=== PATIENT | male | born 1980 | race Hispanic/Latino ===

== ENCOUNTER 2018-07-24 01:39 | Inpatient (IN) | payer OTHER ==
[2018-07-24] VITALS (29 sets, daily range): BP systolic 117–183; BP diastolic 70–115
[~2018-07-24] VITALS: Ht 165.1 cm; Wt 85.7 kg
[2018-07-24 02:11] LABS: BASOPHILS % (AUTO) 0.5 % (0.0-5.0); HEMATOCRIT 44.8 % (42-54); LYMPHOCYTES % (AUTO) 12.2 % (21.0-51.0); MEAN CORPUSCULAR HEMOGLOBIN 32.2 pg (27.0-33.0); MEAN CORPUSCULAR HGB CONC 34.3 g/dL (32.0-36.0); MEAN CORPUSCULAR VOLUME 93.9 fL (79-99); MONOCYTES % (AUTO) 5.8 % (3.0-13.0); NEUTROPHILS % (AUTO) 81.5 % (40.0-77.0); PLATELET COUNT (AUTO) 279 K/uL (130-400); RED BLOOD CELL COUNT(AUTO) 4.76 MIL/uL (4.50-6.20); RED CELL DISTRIBUTION WIDTH 12.7 % (11.0-15.5); WHITE BLOOD COUNT (AUTO) 22.4 K/uL (4.8-10.8)
[2018-07-24] MEDS ORDERED: CEFAZOLIN SODIUM 1 GM VIAL ONE (02:18)
[2018-07-24] MEDS ORDERED: ONDANSETRON HCL 4 MG/2 ML VIAL ONE ×3 (02:18→16:22)
[2018-07-24] MEDS ORDERED: MORPHINE SULFATE 4 MG/1ML SYG ONE (02:19)
[2018-07-24 02:21] LABS: CREATININE 1.4 mg/dL (0.5-1.5); POTASSIUM 4.2 mmol/L (3.5-5.1)
[2018-07-24 02:24] LABS: INR 1.02 (0.85-1.15); PARTIAL THROMBOPLASTIN TIME 24.2 SEC (26.3-35.5); PROTHROMBIN TIME 10.7 SEC (9.6-11.6)
[2018-07-24 02:35] LABS: ALBUMIN 4.6 g/dL (3.5-5.0); BILIRUBIN,TOTAL 0.7 mg/dL (0.2-1.0); TOTAL PROTEIN, SERUM 7.8 g/dL (6.0-8.3)
[2018-07-24] MEDS: SODIUM CHLORIDE 0.9% 1000ML 1,000 ML IV SCH ×3 (03:06→18:30)
[2018-07-24] MEDS ORDERED: MORPHINE SULFATE 4 MG/1ML SYG IV PRN ×2 (03:15→22:45)
[2018-07-24] MEDS ORDERED: ONDANSETRON HCL 4 MG/2 ML VIAL IV PRN (03:15)
[2018-07-24] MEDS ORDERED: CEFAZOLIN SODIUM 1 GM VIAL IVP SCH (03:15)
[2018-07-24] MEDS ORDERED: KETOROLAC TROMETHAMINE 15MG/ML IV PRN (03:15)
[2018-07-24] MEDS ORDERED: KETOROLAC TROMETHAMINE 30MG/ML ONE (03:39)
[2018-07-24] MEDS ORDERED: MORPHINE SULFATE 2 MG/ML 1ML SYG ONE (03:39)
[2018-07-24] MEDS ORDERED: ENOXAPARIN SODIUM 40 MG/0.4 ML SYRINGE SQ SCH (09:00)
[2018-07-24] MEDS ORDERED: FAMOTIDINE/PF 20 MG/2 ML VIAL IV SCH (09:00)
[2018-07-24] MEDS ORDERED: DIVA500T52 PO (13:12)
[2018-07-24] MEDS ORDERED: HYDR-3422 PO (13:12)
[2018-07-24] MEDS ORDERED: TRAZ-187 PO (13:12)
[2018-07-24] MEDS ORDERED: FENTANYL CITRATE PF 50 MCG/1 ML 2ML VIAL ONE ×2 (16:22→16:40)
[2018-07-24] MEDS ORDERED: LIDOCAINE PF 2% 5ML ABBOJECT ONE (16:22)
[2018-07-24] MEDS ORDERED: DEXAMETHASONE SOD PHOSPHATE 10MG/ML 1ML VIAL ONE (16:22)
[2018-07-24] MEDS ORDERED: PROPOFOL 10 MG/ML 20ML VIAL IV ONE ×2 (16:22→17:19)
[2018-07-24] MEDS ORDERED: MIDAZOLAM HCL 1 MG/ML 2ML VIAL ONE (16:22)
[2018-07-24] MEDS ORDERED: LIDOCAINE HCL-MPF 1% 2ML VIAL IVP PRN (16:30)
[2018-07-24] MEDS ORDERED: HYDROCODONE/ACETAMINOPHEN 5/325 MG TAB PO PRN (16:30)
[2018-07-24] MEDS ORDERED: DiphenhydrAMINE HCL 50 MG/ML VIAL IVP PRN (16:30)
[2018-07-24] MEDS ORDERED: POTASSIUM CHLORIDE 20 MEQ ERTAB PO PRN (16:30)
[2018-07-24] MEDS ORDERED: DIPHENHYDRAMINE HCL 25 MG CAPSULE PO PRN (16:30)
[2018-07-24] MEDS ORDERED: FERROUS FUMARATE 324 MG TABLET PO PRN (16:30)
[2018-07-24] MEDS ORDERED: POTASSIUM CHLORIDE 20MEQ/100ML 100 ML IV PRN (16:30)
[2018-07-24] MEDS ORDERED: CALCIUM CARBONATE 500 MG TABLET PO PRN (16:30)
[2018-07-24] MEDS ORDERED: POTASSIUM CHLORIDE 10% ELIXIR 20 MEQ/15 ML UDCUP PO PRN (16:30)
[2018-07-24] MEDS ORDERED: RACEPINEPHRINE HCL 2.25% 0.5 ML NEB SOLN ONE (17:30)
[2018-07-24] MEDS ORDERED: SODIUM CHLORIDE 3% FOR INHALATION 4 ML/AMP VIAL.NEB IH ONE (17:32)
[2018-07-24] MEDS ORDERED: MEPERIDINE-PF 25 MG/ML SYG ONE ×2 (17:47→17:58)
[2018-07-24] MEDS ORDERED: PHARMACY COMMUNICATION MISC PRN (18:00)
[2018-07-24] MEDS ORDERED: LORAZEPAM 2 MG/ML 1 ML VIAL IVP PRN (18:00)
[2018-07-24] MEDS ORDERED: HYDRALAZINE HCL 20 MG/ML VIAL ONE (18:05)
[2018-07-24] MEDS: ACETAMINOPHEN EXTRA STRENGTH 500 MG TABLET PO SCH (18:30)
--- NOTE | 2018-07-24 18:45 | NUR ---
TRANSFER FROM PACU PATIENT TRANSFERRED FROM PACU, WITH ELEVATED BLOOD PRESSURE AND PAIN OF 10 ON 0 TO 10 PAIN SCALE. PER PACU NURSE, HYDRALAZINE AND DEMEROL X2 GIVEN. DR. GARCIA CALLED FOR FURTHER ORDERS. POSITIVE PETAL PULSES, 2-3 SECOND CAPILLARY REFILL, FOOT AND LEG IS WARM TO TOUCH. PENDING TO GIVE REPORT TO SUBHASH VELAZQUEZ. WILL MONITOR PT CLOSELY.
[2018-07-24] MEDS ORDERED: KETOROLAC TROMETHAMINE 15MG/ML IM SCH (19:15)
--- NOTE | 2018-07-24 19:34 | NUR ---
Patient states that he is in pain and needs some type of wrap around his leg that he previously had to help keep his leg straight. I informed him that I was there to instruct him on an incentive spirometer exercise. Patient says he can't concentrate at this time with the pain. I went ahead and told Rambo VELAZQUEZ of the situation. Addendum: 07/24/18 at 1937 by YASMIN ARGUETA, RT RT Amended: Links added.
[2018-07-24] MEDS: FAMOTIDINE 20MG TAB 20 MG TAB PO SCH (19:45)
--- NOTE | 2018-07-24 19:45 | NUR ---
TRANSFER FROM PACU PATIENT TRANSFERRED FROM PACU. PER PACU NURSE, GAVE DEMEROL X2 AND HYDRALAZINE FROM ELEVATED BLOOD PRESSURE. PATIENT IS AAOX3, ELEVATED BLOOD PRESSURE CONTINUES. STATES PAIN IS AT A 10 ON 0 TO [address] PA[address] WILL CALL DR. GARCIA FOR FURTHER ORDERS. Addendum: 07/24/18 at 2013 by JOSEF BEAVER RN RN ERROR
[2018-07-24] MEDS: CEFAZOLIN 3GM /D5W 100ML 100 ML IV SCH (19:52)
[2018-07-24] MEDS: HYDROCODONE/ACETAMINOPHEN 5/325 MG TAB PO PRN (20:25)
[2018-07-24] MEDS: CHLORDIAZEPOXIDE HCL 25 MG CAP PO PRN (21:29)
[2018-07-25] MEDS: ACETAMINOPHEN EXTRA STRENGTH 500 MG TABLET PO SCH ×3 (00:13→16:06)
[2018-07-25] MEDS: SODIUM CHLORIDE 0.9% 1000ML 1,000 ML IV SCH ×2 (03:07→08:39)
[2018-07-25] MEDS: KETOROLAC TROMETHAMINE 30MG/ML IV SCH ×3 (03:07→13:35)
[2018-07-25 03:20] VITALS: BP 159/90
[2018-07-25] MEDS: CEFAZOLIN 3GM /D5W 100ML 100 ML IV SCH (05:06)
[2018-07-25 07:43] VITALS: BP 135/91
[2018-07-25] MEDS: POLYETHYLENE GLYCOL 3350 17 GM POWD.PACK PO SCH (08:33)
[2018-07-25] MEDS: FAMOTIDINE 20MG TAB 20 MG TAB PO SCH ×2 (08:34→21:59)
[2018-07-25] MEDS: ENOXAPARIN SODIUM 40 MG/0.4 ML SYRINGE SQ SCH (08:35)
[2018-07-25] MEDS: CHLORDIAZEPOXIDE HCL 25 MG CAP PO PRN (08:58)
--- NOTE | 2018-07-25 09:16 | NUR ---
cm note pt resides athome with significant other, pt independent and active at home.wiht adls and self care. no dme. referred to [employer] [facility] for possible medicaid. pt states no dc needs. pt currently using crutches for ambulation. dc plan is to home. Addendum: 07/26/18 at 0921 by BLUE HERRMANN Amended: Links added.
--- NOTE | 2018-07-25 11:07 | NUR ---
SS REFERRAL Sw spoke to nurse Cui regarding referral. Per nurse pt is very agitated at this time, was just medicated. Sw entered the room and pt was on the phone, appeared upset at person on the phone. Sw to revisit
[2018-07-25 11:27] VITALS: BP 148/86
[2018-07-25] MEDS ORDERED: PSYLLIUM SEED 1 EACH PACKET PO SCH (12:00)
[2018-07-25] MEDS: HYDROCODONE/ACETAMINOPHEN 5/325 MG TAB PO PRN ×2 (16:09→22:02)
[2018-07-25 16:15] VITALS: BP 135/82
[2018-07-25 20:00] VITALS: BP 159/80
--- NOTE | 2018-07-25 20:30 | NUR ---
SMOKING. PT REQUESTING TO GO OUT AND SMOKE. SANTY Palmer. MADE AWARE AND ALLOWED PATIENT TO GO SMOKE WITH SUPERVISION ON STAFF.
[2018-07-26 00:04] VITALS: BP 147/78
[2018-07-26] MEDS: ACETAMINOPHEN EXTRA STRENGTH 500 MG TABLET PO SCH ×2 (00:26→08:30)
[2018-07-26 04:00] VITALS: BP 135/85
[2018-07-26] MEDS: HYDROCODONE/ACETAMINOPHEN 5/325 MG TAB PO PRN ×2 (05:00→09:36)
[2018-07-26 06:04] LABS: HEMATOCRIT 36.4 % (42-54); MEAN CORPUSCULAR HEMOGLOBIN 31.5 pg (27.0-33.0); MEAN CORPUSCULAR HGB CONC 33.4 g/dL (32.0-36.0); MEAN CORPUSCULAR VOLUME 94.4 fL (79-99); NUCLEATED RED BLOOD CELLS 0.1 % (0.0-0.19); PLATELET COUNT (AUTO) 257 K/uL (130-400); RED BLOOD CELL COUNT(AUTO) 3.85 MIL/uL (4.50-6.20); RED CELL DISTRIBUTION WIDTH 12.1 % (11.0-15.5); WHITE BLOOD COUNT (AUTO) 13.4 K/uL (4.8-10.8)
[2018-07-26 06:21] LABS: CREATININE 1.1 mg/dL (0.5-1.5); MAGNESIUM 1.9 mg/dL (1.80-2.40); POTASSIUM 3.9 mmol/L (3.5-5.1)
[2018-07-26 07:05] VITALS: BP 148/84
[2018-07-26] MEDS: POLYETHYLENE GLYCOL 3350 17 GM POWD.PACK PO SCH (09:36)
[2018-07-26] MEDS: FAMOTIDINE 20MG TAB 20 MG TAB PO SCH (09:36)
[2018-07-26] MEDS: ENOXAPARIN SODIUM 40 MG/0.4 ML SYRINGE SQ SCH (09:38)
[2018-07-26 11:13] VITALS: BP 137/68
--- NOTE | 2018-07-26 13:20 | NUR ---
Discharge teaching completed in the room with pt and significant other at side. Emphasis on importance of following Dr. Luong's orders for keeping dressing to left knee incision clean, dry, and intact, as well as taking medication exactly as ordered, and following up with Dr. Luong in 2 weeks for staple removal. Discussed activity and weight bearing status as well. Pt sent home with walker and crutches. Written rx for t#3, tramadol, and surfak given to pt. Discussed purpose, route, frequency, and duration of treatment, as well as side effects and adverse effects. PIV removed, tip intact. Dressed with sterile 2x2 and band aid after hemostasis. Dressing changed one time per MD orders. [place] to left knee intact. No active drainage. Painted with Betadine, applied Xeroform, and dressed with 4x4 and geeta wrap. Pt wheeled to [place] by [facility] staff for transport home via private car, accompanied by . Pt in stable condition at time of discharge.
--- NOTE | 2018-07-26 14:54 | NUR ---
cm note met with patient and with family. pt requesting assistance for walker, spoke to CM Dir. Romi coon and received approval for assistance with walker, informed pt to return back to hospital when no longer using. pt and family vebalizes understanding. provided pt with rx assist card for meds. as well. encouraged to followup at the low income clinics in the area. for care. pt and family verbalize understanding.
[2018-07-26] MEDS ORDERED: BISACODYL 5 MG TABLET.DR PO PRN (16:30)
[2018-07-27] MEDS ORDERED: BISACODYL 10 MG SUPP.RECT RC PRN (16:30)
== END 2018-07-26 13:23 | disposition home or self-care (01) | DRG 482 ==
LOC: EDH 01:39 → EDHIP 01:40 → 4AH 07:39
PROVIDERS: ADMIT Internal Medicine; ATTEND Internal Medicine
PROC: 0QSC04Z Reposition Left Lower Femur with Internal Fixation Device, Open Approach (ICD-10-PCS; principal; 2018-07-26)
DX: S72.422B Displaced fracture of lateral condyle of left femur, initial encounter for open fracture type I or II (principal); F17.210 Nicotine dependence, cigarettes, uncomplicated; F31.9 Bipolar disorder, unspecified; I10 Essential (primary) hypertension; S81.012A Laceration without foreign body, left knee, initial encounter; D72.829 Elevated white blood cell count, unspecified; F41.9 Anxiety disorder, unspecified; E66.9 Obesity, unspecified; Z68.31 Body mass index [BMI] 31.0-31.9, adult; Y93.89 Activity, other specified; Y92.89 Other specified places as the place of occurrence of the external cause; Y99.8 Other external cause status
CPT/HCPCS: 36415; 73552; 73562; 80048; 80053; 82550; 82948; 83735; 84100; 84484; 85025; 85027; 85610; 85730; 93005; 94640; 97039; G0378; G0480; J0360; J0690; J1100; J1650; J1885; J2001; J2060; J2175; J2250; J2270; J2405; J2704; J3010; J3490; J7030; J7120

== ENCOUNTER 2019-10-10 17:23 | Emergency (ER) | payer OTHER ==
[~2019-10-10 17:23] MED LIST: DIVA500T52 PO; HYDR-3422 PO; TRAZ-187 PO
[2019-10-10] MEDS ORDERED: SODIUM CHLORIDE 0.9% 1000ML 1,000 ML IV ONE (17:24)
[2019-10-10] MEDS ORDERED: ASPIRIN 325 MG TABLET ONE (17:57)
[2019-10-10 18:01] LABS: BASOPHILS % (AUTO) 0.5 % (0.0-5.0); EOSINOPHILS % (AUTO) 0.1 % (0.0-8.0); HEMATOCRIT 46.4 % (42-54); LYMPHOCYTES % (AUTO) 10.1 % (21.0-51.0); MEAN CORPUSCULAR HEMOGLOBIN 30.6 pg (27.0-33.0); MEAN CORPUSCULAR HGB CONC 34.5 g/dL (32.0-36.0); MEAN CORPUSCULAR VOLUME 88.7 fL (79-99); MONOCYTES % (AUTO) 6.6 % (3.0-13.0); NEUTROPHILS % (AUTO) 81.6 % (40.0-77.0); PLATELET COUNT (AUTO) 331 K/uL (130-400); RED BLOOD CELL COUNT(AUTO) 5.23 MIL/uL (4.50-6.20); RED CELL DISTRIBUTION WIDTH 12.4 % (11.0-15.5); WHITE BLOOD COUNT (AUTO) 19.6 K/uL (4.8-10.8)
[2019-10-10] MEDS ORDERED: LORAZEPAM 2 MG/ML 1 ML VIAL ONE (18:18)
[2019-10-10 18:21] LABS: CREATININE 2.1 mg/dL (0.5-1.5); INR 1.02 (0.85-1.15); PARTIAL THROMBOPLASTIN TIME 24.9 SEC (26.3-35.5); POTASSIUM 4.2 mmol/L (3.5-5.1)
[2019-10-10 18:34] LABS: BILIRUBIN,TOTAL 1.1 mg/dL (0.2-1.0)
== END 2019-10-10 20:19 | disposition left against medical advice (07) ==
LOC: EDH 17:23
DX: R07.89 Other chest pain (principal); M62.82 Rhabdomyolysis; N17.9 Acute kidney failure, unspecified; I10 Essential (primary) hypertension; F41.9 Anxiety disorder, unspecified; F32.9 Major depressive disorder, single episode, unspecified; Z72.0 Tobacco use
CPT/HCPCS: 36415; 71045; 80053; 82550; 83690; 83874; 84484; 85025; 85610; 85730; 93005; 96360; 99285; J7030; J2060

== ENCOUNTER 2021-07-19 09:24 | Emergency (ER) | payer SELFPAY ==
[~2021-07-19] VITALS: Ht 167.6 cm; Wt 81.6 kg
[2021-07-19 09:55] LABS: BASOPHILS % (AUTO) 0.5 % (0.0-5.0); LYMPHOCYTES % (AUTO) 15.9 % (21.0-51.0); MEAN CORPUSCULAR HEMOGLOBIN 30.9 pg (27.0-33.0); MEAN CORPUSCULAR HGB CONC 33.6 g/dL (32.0-36.0); MONOCYTES % (AUTO) 7.1 % (3.0-13.0); NEUTROPHILS % (AUTO) 75.1 % (40.0-77.0); PLATELET COUNT (AUTO) 287 K/uL (130-400); RED BLOOD CELL COUNT(AUTO) 4.89 MIL/uL (4.50-6.20); RED CELL DISTRIBUTION WIDTH 11.9 % (11.0-15.5); WHITE BLOOD COUNT (AUTO) 13.6 K/uL (4.8-10.8)
[2021-07-19 10:12] LABS: BILIRUBIN,TOTAL 0.5 mg/dL (0.2-1.0); CREATININE 1.1 mg/dL (0.5-1.5); POTASSIUM 4.1 mmol/L (3.5-5.1); TOTAL PROTEIN, SERUM 7.2 g/dL (6.0-8.3)
[2021-07-19] MEDS ORDERED: KETOROLAC 30MG VIAL (30MG/ML) IVP ONE (10:30)
[2021-07-19] MEDS ORDERED: HYDROCODONE/ACETAMINOPHEN 10/325 MG TAB PO ONE (10:30)
[2021-07-19] MEDS ORDERED: KETOROLAC 60 MG VIAL (30MG/ML) IM ONE (11:00)
[2021-07-19] MEDS ORDERED: ACET-2079 PO (11:59)
[2021-07-19 12:11] VITALS: BP 170/84
== END 2021-07-19 12:18 | disposition home or self-care (01) ==
LOC: EDH 09:24
DX: S83.92XA Sprain of unspecified site of left knee, initial encounter (principal); S00.12XA Contusion of left eyelid and periocular area, initial encounter; S20.219A Contusion of unspecified front wall of thorax, initial encounter; E78.00 Pure hypercholesterolemia, unspecified; I10 Essential (primary) hypertension; Z79.899 Other long term (current) drug therapy; Z98.890 Other specified postprocedural states; Y04.0XXA Assault by unarmed brawl or fight, initial encounter; Y93.89 Activity, other specified; Y92.89 Other specified places as the place of occurrence of the external cause; Y99.8 Other external cause status
CPT/HCPCS: 36415; 71045; 73562; 80053; 84484; 85025; 93005; 96372; 99285; J1885 ×2

== ENCOUNTER 2021-12-01 08:00 | Emergency (ER) | payer BC, OTHER ==
[~2021-12-01] VITALS: Ht 165.1 cm; Wt 75.7 kg
[~2021-12-01 08:00] MED LIST changes: +ACET-2079 PO
[2021-12-01 08:02] VITALS: BP 154/97
[2021-12-01 08:57] LABS: BASOPHILS % (AUTO) 0.5 % (0.0-5.0); EOSINOPHILS % (AUTO) 1.5 % (0.0-8.0); HEMATOCRIT 40.2 % (42-54); LYMPHOCYTES % (AUTO) 18.4 % (21.0-51.0); MEAN CORPUSCULAR HEMOGLOBIN 30.9 pg (27.0-33.0); MEAN CORPUSCULAR HGB CONC 34.1 g/dL (32.0-36.0); MEAN CORPUSCULAR VOLUME 90.5 fL (79-99); MONOCYTES % (AUTO) 14.2 % (3.0-13.0); NEUTROPHILS % (AUTO) 65.1 % (40.0-77.0); PLATELET COUNT (AUTO) 256 K/uL (130-400); RED BLOOD CELL COUNT(AUTO) 4.44 MIL/uL (4.50-6.20); RED CELL DISTRIBUTION WIDTH 11.7 % (11.0-15.5); WHITE BLOOD COUNT (AUTO) 11.4 K/uL (4.8-10.8)
[2021-12-01] MEDS ORDERED: MORPHINE 4 MG SYG IM ONE (09:00)
[2021-12-01] MEDS ORDERED: ONDANSETRON ODT 4MG TAB SL ONE (09:00)
[2021-12-01 09:02] LABS: BILIRUBIN,URINE NEGATIVE (NEGATIVE); COLOR,URINE YELLOW (YELLOW); GLUCOSE, URINE (UA) NEGATIVE (NEGATIVE); KETONES,URINE NEGATIVE (NEGATIVE); LEUKOCYTE ESTERASE ,URINE LARGE Leu/uL (NEGATIVE); NITRATE,URINE NEGATIVE (NEGATIVE); OCCULT BLOOD,URINE LARGE (NEGATIVE); PROTEIN,URINE 100 mg/dL (NEGATIVE); UROBILINOGEN,URINE 0.2 mg/dL (0.2-1.0)
[2021-12-01 09:05] LABS: APPEARANCE,URINE SLIGHTLY CLOUDY (CLEAR)
[2021-12-01] MEDS ORDERED: ONDANSETRON ODT 4MG TAB ONE (09:06)
[2021-12-01] MEDS ORDERED: MORPHINE 4 MG SYG ONE (09:07)
[2021-12-01 09:08] LABS: AMPHET/METH SCREEN,URINE NEGATIVE (NEGATIVE); BARBITURATE SCREEN, URINE NEGATIVE (NEGATIVE); BENZODIAZEPINES SCREEN,URINE NEGATIVE (NEGATIVE); CANNABINOID SCREEN,URINE POSITIVE (NEGATIVE); COCAINE SCREEN,URINE POSITIVE (NEGATIVE); PHENCYCLIDINE SCREEN,URINE NEGATIVE (NEGATIVE)
[2021-12-01 09:11] LABS: BACTERIA,URINE Few /HPF (None Seen)
[2021-12-01 09:12] LABS: SQUAMOUS EPITHELIAL CELL,UR 0-2 /HPF (0-2)
[2021-12-01 09:29] LABS: CREATININE 0.9 mg/dL (0.5-1.5); POTASSIUM 3.4 mmol/L (3.5-5.1)
[2021-12-01 09:34] LABS: TOTAL PROTEIN, SERUM 6.6 g/dL (6.0-8.3)
[2021-12-01 10:11] LABS: ERYTHROCYTE SEDIMENTATION RATE 30 MM/HR (0-15)
[2021-12-01] MEDS ORDERED: CEFTRIAXONE 2GM VIAL IVP ONE (11:00)
[2021-12-01] MEDS ORDERED: CYCL-309 PO (11:55)
[2021-12-01] MEDS ORDERED: DOXY-336 PO (11:55)
[2021-12-01] MEDS ORDERED: NAPR-1180 PO (11:55)
[2021-12-01] MEDS ORDERED: DOXYCYCLINE HYCLATE 100 MG TABLET PO SCH (12:00)
== END 2021-12-01 12:11 | disposition home or self-care (01) ==
LOC: EDH 08:00
DX: N12 Tubulo-interstitial nephritis, not specified as acute or chronic (principal); M54.50 Low back pain, unspecified; R11.2 Nausea with vomiting, unspecified; E78.00 Pure hypercholesterolemia, unspecified; F31.9 Bipolar disorder, unspecified; F41.9 Anxiety disorder, unspecified; I10 Essential (primary) hypertension
CPT/HCPCS: 99284; 74176; 96374; 83735; 80053; 80305; 85025; 85651; 87077; 87088; 87186; 83605; 87797; 87486; 36415; 96372; 81001; J0696; J2270

== ENCOUNTER 2022-04-27 18:07 | Emergency (ER) | payer BC ==
[~2022-04-27] VITALS: Ht 165.1 cm; Wt 54.9 kg
[~2022-04-27 18:07] MED LIST changes: +CYCL-309 PO; +DOXY-469 PO; +NAPR-1180 PO
[2022-04-27 19:23] LABS: BASOPHILS % (AUTO) 0.2 % (0.0-5.0); EOSINOPHILS % (AUTO) 0.1 % (0.0-8.0); HEMATOCRIT 43.3 % (42-54); LYMPHOCYTES % (AUTO) 13.9 % (21.0-51.0); MEAN CORPUSCULAR HEMOGLOBIN 30.8 pg (27.0-33.0); MEAN CORPUSCULAR HGB CONC 33.9 g/dL (32.0-36.0); MEAN CORPUSCULAR VOLUME 90.6 fL (79-99); MONOCYTES % (AUTO) 4.1 % (3.0-13.0); NEUTROPHILS % (AUTO) 79.5 % (40.0-77.0); PLATELET COUNT (AUTO) 437 K/uL (130-400); RED BLOOD CELL COUNT(AUTO) 4.78 MIL/uL (4.50-6.20); RED CELL DISTRIBUTION WIDTH 11.7 % (11.0-15.5); WHITE BLOOD COUNT (AUTO) 17.5 K/uL (4.8-10.8)
[2022-04-27 19:26] LABS: APPEARANCE,URINE CLOUDY (CLEAR); BILIRUBIN,URINE NEGATIVE (NEGATIVE); COLOR,URINE YELLOW (YELLOW); GLUCOSE, URINE (UA) NEGATIVE (NEGATIVE); KETONES,URINE NEGATIVE (NEGATIVE); LEUKOCYTE ESTERASE ,URINE 500 Leu/uL (NEGATIVE); NITRATE,URINE NEGATIVE (NEGATIVE); OCCULT BLOOD,URINE SMALL (NEGATIVE); PROTEIN,URINE 10 mg/dL (NEGATIVE); UROBILINOGEN,URINE 0.2 mg/dL (0.2-1.0)
[2022-04-27] MEDS ORDERED: KETOROLAC 30MG VIAL (30MG/ML) IVP ONE (19:30)
[2022-04-27] MEDS ORDERED: 0.9%NACL 1000ML 1,000 ML IV ONE (19:30)
[2022-04-27 19:31] LABS: BACTERIA,URINE RARE /HPF (None Seen); MUCUS,URINE RARE LPF (None Seen); SQUAMOUS EPITHELIAL CELL,UR RARE /HPF (0-2); WBC,URINE TNTC /HPF (0-1)
[2022-04-27 19:43] LABS: ALBUMIN 4.1 g/dL (3.5-5.0)
[2022-04-27 20:11] LABS: AMPHET/METH SCREEN,URINE NEGATIVE (NEGATIVE); BARBITURATE SCREEN, URINE NEGATIVE (NEGATIVE); BENZODIAZEPINES SCREEN,URINE NEGATIVE (NEGATIVE); CANNABINOID SCREEN,URINE POSITIVE (NEGATIVE); COCAINE SCREEN,URINE POSITIVE (NEGATIVE); OPIATE SCREEN,URINE NEGATIVE (NEGATIVE); PHENCYCLIDINE SCREEN,URINE NEGATIVE (NEGATIVE)
[2022-04-27] MEDS ORDERED: CEFTRIAXONE 1G VIAL ONE (20:55)
[2022-04-27] MEDS ORDERED: CEFTRIAXONE 1G VIAL IVP ONE (21:00)
[2022-04-27] MEDS ORDERED: LEVO750T68 PO (21:06)
[2022-04-27 21:19] VITALS: BP 147/96
== END 2022-04-27 21:49 | disposition home or self-care (01) ==
LOC: EDH 18:07
DX: N39.0 Urinary tract infection, site not specified (principal); J18.1 Lobar pneumonia, unspecified organism; I10 Essential (primary) hypertension; E78.00 Pure hypercholesterolemia, unspecified; Z79.899 Other long term (current) drug therapy; Z98.890 Other specified postprocedural states; Z85.528 Personal history of other malignant neoplasm of kidney
CPT/HCPCS: 99284; 74176; 96374; 96361; 96375; 84484; 80053; 80305; 83690; 85025; 87077; 87088; 87186; 36415; 93005; 81001; J7030; J0696; J1885

== ENCOUNTER 2022-08-25 01:57 | Emergency (ER) | payer BC ==
[~2022-08-25] VITALS: Ht 165.1 cm; Wt 68.0 kg
[~2022-08-25 01:57] MED LIST changes: +LEVO750T68 PO
[2022-08-25 01:58] VITALS: BP 135/92
== END 2022-08-25 02:32 | disposition left against medical advice (07) ==
LOC: EDH 01:57
DX: R10.9 Unspecified abdominal pain (principal); Z53.21 Procedure and treatment not carried out due to patient leaving prior to being seen by health care provider
CPT/HCPCS: 99281

== ENCOUNTER 2023-09-27 14:13 | Emergency (ER) | payer BC, OTHER ==
[~2023-09-27] VITALS: Ht 177.8 cm; Wt 74.8 kg
[~2023-09-27 14:13] MED LIST changes: -DOXY-469 PO; +DOXY100C61 PO
[2023-09-27 14:28] VITALS: BP 142/71; PULSE 78; RESP 18; O2SAT 97
[2023-09-27] MEDS: ACETAMINOPHEN 500 MG TABLET PO ONE (15:01)
== END 2023-09-27 15:14 | disposition left against medical advice (07) ==
LOC: EDH 14:13
DX: R51.9 Headache, unspecified (principal); F41.9 Anxiety disorder, unspecified; F31.9 Bipolar disorder, unspecified; Z79.899 Other long term (current) drug therapy; Z98.890 Other specified postprocedural states; V89.2XXA Person injured in unspecified motor-vehicle accident, traffic, initial encounter; Y93.89 Activity, other specified; Y92.488 Other paved roadways as the place of occurrence of the external cause; Y99.8 Other external cause status

== ENCOUNTER 2023-10-02 14:23 | Emergency (ER) | payer OTHER ==
[~2023-10-02] VITALS: Ht 165.1 cm; Wt 64.9 kg
[2023-10-02] MEDS: CYCLOBENZAPRINE HCL 10 MG TABLET PO ONE (17:49)
[2023-10-02] MEDS: ketOROlac 30MG VIAL (30MG/ML) IM ONE (17:50)
[2023-10-02] MEDS ORDERED: IBUP-2077 PO (18:18)
[2023-10-02 18:25] VITALS: BP 126/72; PULSE 54; RESP 18; TEMP 97.5; O2SAT 99
== END 2023-10-02 18:33 | disposition home or self-care (01) ==
LOC: EDH 14:23
DX: S20.214A Contusion of middle front wall of thorax, initial encounter (principal); E78.00 Pure hypercholesterolemia, unspecified; F20.9 Schizophrenia, unspecified; I10 Essential (primary) hypertension; V89.2XXA Person injured in unspecified motor-vehicle accident, traffic, initial encounter; Y93.I9 Activity, other involving external motion; Y92.89 Other specified places as the place of occurrence of the external cause; Y99.8 Other external cause status
CPT/HCPCS: 99283; 71046; 96372; J1885